=== PATIENT | female | born 1935 | race Caucasian/White ===

== ENCOUNTER 2021-10-24 11:34 | Observation (INO) | payer MEDICARE ==
[2021-10-24 12:01] LABS: #Basophils 0.1 10x3/uL (0.0-0.2); #Eosinphils 0.1 10x3/uL (0.0-0.5); #Monocytes 0.5 10x3/uL (0.0-1.1); #Neutrophils 5.2 10x3/uL (1.5-8.4); %Basophils 0.7 % (0.0-2.0); %Eosinophils 1.2 % (0.0-6.0); %Lymphocytes 22.6 % (18.0-47.0); %Monocytes 6.9 % (0.0-10.0); %Neutrophils 68.3 % (40.0-75.0); Hemoglobin 12.7 g/dL (12.0-15.5); Mean Corpuscular HGB CONC 34.2 g/dL (32.0-36.0); Mean Corpuscular Hemoglobin 30.5 pg (27.0-33.0); Mean Platelet Volume 9.5 fl (7.4-10.4); Platelet Count 171 10x3/uL (150-450); Red Blood Cell (RBC) Count 4.17 10x6/uL (3.90-5.03); White Blood Cell (WBC) Count 7.5 10x3/uL (3.5-10.5)
[2021-10-24] MEDS ORDERED: Aspirin Chewable 81 MG TAB ONE (12:02)
[2021-10-24 12:21] LABS: ALT (SGPT) 16 U/L (8-55); AST (SGOT) 14 U/L (5-34); Albumin 4.1 g/dL (3.4-4.8); Alkaline Phosphatase 76 U/L (40-110); Anion Gap 18 mmol/L (10-20); BUN (Urea Nitrogen) 22 mg/dL (9.8-20.1); Bilirubin, Total 0.5 mg/dL (0.2-1.2); Calc. Creatinine Clearance 0 mL/min (70-130); Calcium 9.2 mg/dL (7.8-10.44); Carbon Dioxide 23 mmol/L (23-31); Chloride 95 mmol/L (98-107); Estimated GFR 35; Globulin 2.7 g/dL (2.4-3.5); Glucose 151 mg/dL (83-110); Potassium 4.2 mmol/L (3.5-5.1); Protein, Total 6.8 g/dL (5.8-8.1); Sodium 132 mmol/L (136-145)
[2021-10-24] MEDS ORDERED: Nitroglycerin 2% Ointment 1 INCH/1 GM Packet ONE (12:54)
[2021-10-24] MEDS ORDERED: Ondansetron PF 4 MG/2 ML Vial IVP PRN (13:16)
[2021-10-24 13:58] LABS: SARS-CoV-2 NAA Rapid Test Not Detected (NotDetected)
[2021-10-24 14:27] VITALS: BMI 29.4
[2021-10-24 15:08] LABS: Troponin I Less than 0.010 ng/mL (< 0.028)
[2021-10-24 18:11] LABS: Troponin I Less than 0.010 ng/mL (< 0.028)
[2021-10-24] MEDS: Sodium Chloride 0.9% 500 ML IV SCH ×2 (20:55→21:15)
[2021-10-24] MEDS ORDERED: Atorvastatin Calcium 20 MG TAB PO SCH (21:00)
[2021-10-24] MEDS ORDERED: Sodium Chloride 0.9% 1,000 ML ONE (21:18)
[2021-10-24] MEDS ORDERED: Acetaminophen 325 MG TAB PO SCH (23:30)
[2021-10-25 04:18] LABS: Cardiac Risk 5.9 (Less than 4.5)
[2021-10-25] MEDS: Sodium Chloride 0.9% 500 ML IV SCH (04:21)
[2021-10-25] MEDS ORDERED: Sodium Chloride 0.9% 1,000 ML ONE (04:23)
[2021-10-25] MEDS ORDERED: Aspirin Chewable 81 MG TAB PO SCH (09:00)
[2021-10-25] MEDS ORDERED: Enoxaparin Sodium 30 MG/0.3 ML SYRINGE SC SCH (09:00)
[2021-10-25] MEDS ORDERED: Acetaminophen 325 MG TAB PO PRN (11:35)
[2021-10-25 12:30] LABS: Hemoglobin A1c 6.3 % (4.0-6.0)
[2021-10-25 12:50] VITALS: BP 155/95; TEMP 98.2
[2021-10-25] MEDS ORDERED: Carvedilol 3.125 MG TAB PO SCH (17:00)
[2021-10-25] MEDS ORDERED: Atorvastatin Calcium 40 MG TAB PO SCH (21:00)
[2021-10-25] MEDS ORDERED: Amitriptyline HCl 25 MG TAB PO SCH (21:00)
[2021-10-26] MEDS ORDERED: Levothyroxine Sodium 75 MCG TAB PO SCH (06:00)
== END 2021-10-25 14:35 | disposition home health service (06) ==
LOC: CSHERS 11:34 → CSHTELE 13:45
PROVIDERS: ADMIT Family Medicine; ATTEND Family Medicine
DX: R07.9 Chest pain, unspecified (principal); I10 Essential (primary) hypertension; E78.5 Hyperlipidemia, unspecified; E03.9 Hypothyroidism, unspecified; F41.8 Other specified anxiety disorders; Z88.8 Allergy status to other drugs, medicaments and biological substances; Z20.822 Contact with and (suspected) exposure to COVID-19
CPT/HCPCS: 71045; 80061; 83036; 83880; 84484 ×2; 93005; 93306; 96372; 99285; G0378 ×3; U0002; 36415; 80053; 84443; 85025; J1650; J7050

== ENCOUNTER 2022-01-01 20:26 | Emergency (ER) | payer MEDICARE, OTHER ==
[2022-01-01 20:57] LABS: #Basophils 0.1 10x3/uL (0.0-0.2); #Eosinphils 0.1 10x3/uL (0.0-0.5); #Monocytes 0.8 10x3/uL (0.0-1.1); #Neutrophils 5.9 10x3/uL (1.5-8.4); %Basophils 0.6 % (0.0-2.0); %Eosinophils 1.3 % (0.0-6.0); %Lymphocytes 26.9 % (18.0-47.0); %Monocytes 8.2 % (0.0-10.0); %Neutrophils 62.8 % (40.0-75.0); Hemoglobin 12.6 g/dL (12.0-15.5); Mean Corpuscular HGB CONC 34.4 g/dL (32.0-36.0); Mean Corpuscular Hemoglobin 30.4 pg (27.0-33.0); Mean Corpuscular Volume 88.4 fl (81.6-98.3); Mean Platelet Volume 9.3 fl (7.4-10.4); Platelet Count 209 10x3/uL (150-450); RBC Distribution Width 12.3 % (11.5-14.5); Red Blood Cell (RBC) Count 4.14 10x6/uL (3.90-5.03); White Blood Cell (WBC) Count 9.3 10x3/uL (3.5-10.5)
[2022-01-01 21:09] LABS: ALT (SGPT) 15 U/L (8-55); AST (SGOT) 13 U/L (5-34); Albumin 4.3 g/dL (3.4-4.8); Alkaline Phosphatase 89 U/L (40-110); Anion Gap 17 mmol/L (10-20); BUN (Urea Nitrogen) 29 mg/dL (9.8-20.1); Bilirubin, Total 0.3 mg/dL (0.2-1.2); Calc. Creatinine Clearance 0 mL/min (70-130); Calcium 9.4 mg/dL (7.8-10.44); Carbon Dioxide 23 mmol/L (23-31); Chloride 98 mmol/L (98-107); Estimated GFR 34; Globulin 3.1 g/dL (2.4-3.5); Glucose 97 mg/dL (83-110); Potassium 4.5 mmol/L (3.5-5.1); Protein, Total 7.4 g/dL (5.8-8.1); Sodium 133 mmol/L (136-145)
== END 2022-01-01 22:30 | disposition home or self-care (01) ==
LOC: CSHERS 20:26
DX: R07.9 Chest pain, unspecified (principal); R06.02 Shortness of breath; E03.9 Hypothyroidism, unspecified; I10 Essential (primary) hypertension
CPT/HCPCS: 36415; 71045; 80053; 83880; 84484; 85025; 93005

== ENCOUNTER 2022-07-26 12:58 | Inpatient (IN) | payer OTHER ==
[2022-07-26 15:06] LABS: #Monocytes 0.3 10x3/uL (0.0-1.1); #Neutrophils 9.4 10x3/uL (1.5-8.4); %Basophils 0.4 % (0.0-2.0); %Eosinophils 0.4 % (0.0-6.0); %Lymphocytes 7.3 % (18.0-47.0); %Monocytes 2.7 % (0.0-10.0); %Neutrophils 88.8 % (40.0-75.0); Hemoglobin 11.2 g/dL (12.0-15.5); Mean Corpuscular HGB CONC 36.1 g/dL (32.0-36.0); Mean Corpuscular Hemoglobin 30.8 pg (27.0-33.0); Mean Corpuscular Volume 85.2 fl (81.6-98.3); Mean Platelet Volume 9.4 fl (7.4-10.4); Platelet Count 231 10x3/uL (150-450); RBC Distribution Width 12.2 % (11.5-14.5); Red Blood Cell (RBC) Count 3.64 10x6/uL (3.90-5.03); White Blood Cell (WBC) Count 10.6 10x3/uL (3.5-10.5)
[2022-07-26 15:10] LABS: PTT 31.9 sec (22.0-33.0); Prothrombin Time 10.8 sec (9.5-12.1)
[2022-07-26 15:15] LABS: ALT (SGPT) 22 U/L (8-55); AST (SGOT) 20 U/L (5-34); Albumin 4.5 g/dL (3.4-4.8); Alkaline Phosphatase 69 U/L (40-110); Anion Gap 16 mmol/L (10-20); BUN (Urea Nitrogen) 35 mg/dL (9.8-20.1); Bilirubin, Total 0.5 mg/dL (0.2-1.2); CK (CPK) 127 U/L (29-168); Calc. Creatinine Clearance 0 mL/min (70-130); Calcium 9.5 mg/dL (7.8-10.44); Carbon Dioxide 22 mmol/L (23-31); Chloride 93 mmol/L (98-107); Estimated GFR 36; Globulin 2.7 g/dL (2.4-3.5); Glucose 113 mg/dL (83-110); Magnesium 2.1 mg/dL (1.6-2.6); Potassium 4.2 mmol/L (3.5-5.1); Protein, Total 7.2 g/dL (5.8-8.1); Sodium 127 mmol/L (136-145)
[2022-07-26] MEDS ORDERED: Ondansetron PF 4 MG/2 ML Vial IVP PRN (16:11)
[2022-07-26] MEDS ORDERED: Acetaminophen 650 MG Suppository PR PRN (16:11)
[2022-07-26] MEDS: Carvedilol 3.125 MG TAB PO SCH (19:00)
[2022-07-26] MEDS: hydrOXYzine 25 MG TAB PO PRN (19:00)
[2022-07-26] MEDS ORDERED: hydrOXYzine 25 MG TAB ONE (19:04)
[2022-07-26] MEDS ORDERED: Carvedilol 3.125 MG TAB ONE (19:17)
[2022-07-26 19:33] LABS: Bilirubin Neg (Negative); Blood, Urine Negative (Negative); Clarity Clear (Clear); Glucose, Urine (Dipstick) Normal (Negative); Ketone, Urine 5 mg/dL (Negative); Leukocyte 25 (Negative); Nitrite Negative (Negative); Protein, Urine (Dipstick) Negative (Neg-Trace); Specific Gravity, Urine 1.015 (1.005-1.030); Urobilinogen Normal mg/dL (Less than 2)
[2022-07-26 19:49] LABS: Bacteria/HPF Rare-Few HPF (None Seen); RBC/HPF 0-3 HPF (0-3)
[2022-07-26 21:35] LABS: Anion Gap 20 mmol/L (10-20); BUN (Urea Nitrogen) 29 mg/dL (9.8-20.1); Calc. Creatinine Clearance 0 mL/min (70-130); Calcium 9.6 mg/dL (7.8-10.44); Carbon Dioxide 18 mmol/L (23-31); Chloride 94 mmol/L (98-107); Estimated GFR 38; Glucose 181 mg/dL (83-110); Sodium 128 mmol/L (136-145)
[2022-07-26] MEDS ORDERED: Heparin 5,000 UNITS/ML VIAL ONE (21:45)
[2022-07-26] MEDS: Heparin 5,000 UNITS/ML VIAL SC SCH (21:52)
[2022-07-26] MEDS ORDERED: HYDROcodone/Acetaminophen 5/325 mg Tablet PO SCH (22:00)
[2022-07-26] MEDS ORDERED: HYDROcodone/Acetaminophen 5/325 mg Tablet ONE (22:21)
[2022-07-26] MEDS ORDERED: ALPRAZolam 0.25 MG TAB PO SCH (23:30)
[2022-07-26] MEDS ORDERED: ALPRAZolam 0.5 MG TAB ONE (23:35)
[2022-07-27 03:04] LABS: #Monocytes 0.2 10x3/uL (0.0-1.1); #Neutrophils 10.8 10x3/uL (1.5-8.4); %Lymphocytes 7.9 % (18.0-47.0); %Monocytes 1.3 % (0.0-10.0); %Neutrophils 90.3 % (40.0-75.0); Hemoglobin 11.3 g/dL (12.0-15.5); Mean Corpuscular HGB CONC 35.9 g/dL (32.0-36.0); Mean Corpuscular Hemoglobin 30.3 pg (27.0-33.0); Mean Corpuscular Volume 84.5 fl (81.6-98.3); Mean Platelet Volume 9.4 fl (7.4-10.4); Platelet Count 246 10x3/uL (150-450); RBC Distribution Width 12.3 % (11.5-14.5); Red Blood Cell (RBC) Count 3.73 10x6/uL (3.90-5.03); White Blood Cell (WBC) Count 11.9 10x3/uL (3.5-10.5)
[2022-07-27 03:45] LABS: Anion Gap 19 mmol/L (10-20); BUN (Urea Nitrogen) 30 mg/dL (9.8-20.1); Calc. Creatinine Clearance 0 mL/min (70-130); Calcium 9.5 mg/dL (7.8-10.44); Carbon Dioxide 17 mmol/L (23-31); Cardiac Risk 4.2 (Less than 4.5); Chloride 97 mmol/L (98-107); Cholesterol 212 mg/dl (< 200 Desired); Estimated GFR 41; Glucose 148 mg/dL (83-110); HDL Cholesterol 51 mg/dL (>60 Neg Risk); LDL Cholesterol, Calculated 139 mg/dL; Potassium 4.3 mmol/L (3.5-5.1); Sodium 129 mmol/L (136-145); Triglycerides 109 mg/dL (Less than 150)
[2022-07-27] MEDS: Levothyroxine Sodium 75 MCG TAB PO SCH (06:54)
[2022-07-27] MEDS ORDERED: Aspirin Chewable 81 MG TAB ONE (08:10)
[2022-07-27] MEDS ORDERED: Heparin 5,000 UNITS/ML VIAL ONE (08:10)
[2022-07-27] MEDS ORDERED: Carvedilol 3.125 MG TAB ONE (08:11)
[2022-07-27] MEDS: Heparin 5,000 UNITS/ML VIAL SC SCH ×3 (08:20→21:30)
[2022-07-27] MEDS: Carvedilol 3.125 MG TAB PO SCH ×2 (08:25→16:58)
[2022-07-27] MEDS: Aspirin 81 mg Enteric Coated Tablet PO SCH (08:25)
[2022-07-27] MEDS ORDERED: Sodium Chloride 0.9% 1,000 ML IV SCH (09:15)
[2022-07-27] MEDS: Bupropion 150 MG XL TAB PO SCH (09:57)
[2022-07-27 12:15] VITALS: BMI 35.4
[2022-07-27 13:11] LABS: Hemoglobin A1c 5.8 % (4.0-6.0)
[2022-07-27 18:50] LABS: Anion Gap 17 mmol/L (10-20); BUN (Urea Nitrogen) 27 mg/dL (9.8-20.1); Calc. Creatinine Clearance 50 mL/min (70-130); Calcium 9.2 mg/dL (7.8-10.44); Carbon Dioxide 21 mmol/L (23-31); Chloride 98 mmol/L (98-107); Estimated GFR 44; Glucose 143 mg/dL (83-110); Potassium 3.8 mmol/L (3.5-5.1); Sodium 132 mmol/L (136-145)
[2022-07-27] MEDS: Atorvastatin Calcium 40 MG TAB PO SCH (21:17)
[2022-07-28 04:53] LABS: #Eosinphils 0.2 10x3/uL (0.0-0.5); #Monocytes 0.7 10x3/uL (0.0-1.1); #Neutrophils 7.4 10x3/uL (1.5-8.4); %Basophils 0.4 % (0.0-2.0); %Eosinophils 1.6 % (0.0-6.0); %Lymphocytes 25.8 % (18.0-47.0); %Monocytes 6.1 % (0.0-10.0); %Neutrophils 65.8 % (40.0-75.0); Hemoglobin 10.8 g/dL (12.0-15.5); Mean Corpuscular HGB CONC 34.2 g/dL (32.0-36.0); Mean Corpuscular Volume 87.8 fl (81.6-98.3); Mean Platelet Volume 9.6 fl (7.4-10.4); Platelet Count 231 10x3/uL (150-450); RBC Distribution Width 12.8 % (11.5-14.5); White Blood Cell (WBC) Count 11.2 10x3/uL (3.5-10.5)
[2022-07-28 05:03] LABS: ALT (SGPT) 18 U/L (8-55); AST (SGOT) 15 U/L (5-34); Albumin 3.9 g/dL (3.4-4.8); Alkaline Phosphatase 53 U/L (40-110); Anion Gap 15 mmol/L (10-20); BUN (Urea Nitrogen) 25 mg/dL (9.8-20.1); Bilirubin, Total 0.2 mg/dL (0.2-1.2); Calc. Creatinine Clearance 58 mL/min (70-130); Calcium 9.1 mg/dL (7.8-10.44); Carbon Dioxide 20 mmol/L (23-31); Chloride 102 mmol/L (98-107); Estimated GFR 53; Globulin 2.4 g/dL (2.4-3.5); Glucose 97 mg/dL (83-110); Potassium 4.1 mmol/L (3.5-5.1); Protein, Total 6.3 g/dL (5.8-8.1); Sodium 133 mmol/L (136-145)
[2022-07-28] MEDS: Levothyroxine Sodium 75 MCG TAB PO SCH (07:00)
[2022-07-28] MEDS: Bupropion 150 MG XL TAB PO SCH (08:53)
[2022-07-28] MEDS: Heparin 5,000 UNITS/ML VIAL SC SCH ×3 (08:53→22:00)
[2022-07-28] MEDS: Carvedilol 3.125 MG TAB PO SCH ×2 (08:53→15:44)
[2022-07-28] MEDS: Aspirin 81 mg Enteric Coated Tablet PO SCH (08:53)
[2022-07-28] MEDS: Atorvastatin Calcium 40 MG TAB PO SCH (20:09)
[2022-07-28] MEDS: Acetaminophen 325 MG TAB PO PRN (20:09)
[2022-07-29 06:01] LABS: ALT (SGPT) 17 U/L (8-55); AST (SGOT) 14 U/L (5-34); Albumin 3.7 g/dL (3.4-4.8); Alkaline Phosphatase 58 U/L (40-110); Anion Gap 17 mmol/L (10-20); BUN (Urea Nitrogen) 25 mg/dL (9.8-20.1); Bilirubin, Total 0.3 mg/dL (0.2-1.2); Calc. Creatinine Clearance 54 mL/min (70-130); Carbon Dioxide 21 mmol/L (23-31); Chloride 99 mmol/L (98-107); Estimated GFR 49; Globulin 2.3 g/dL (2.4-3.5); Glucose 93 mg/dL (83-110); Potassium 4.4 mmol/L (3.5-5.1); Sodium 133 mmol/L (136-145)
[2022-07-29] MEDS: Levothyroxine Sodium 75 MCG TAB PO SCH (06:06)
[2022-07-29 06:09] LABS: #Basophils 0.1 10x3/uL (0.0-0.2); #Eosinphils 0.3 10x3/uL (0.0-0.5); #Monocytes 0.8 10x3/uL (0.0-1.1); #Neutrophils 5.1 10x3/uL (1.5-8.4); %Basophils 0.5 % (0.0-2.0); %Lymphocytes 33.8 % (18.0-47.0); %Monocytes 8.2 % (0.0-10.0); %Neutrophils 54.2 % (40.0-75.0); Hemoglobin 10.6 g/dL (12.0-15.5); Mean Corpuscular HGB CONC 34.4 g/dL (32.0-36.0); Mean Corpuscular Hemoglobin 30.1 pg (27.0-33.0); Mean Corpuscular Volume 87.5 fl (81.6-98.3); Mean Platelet Volume 9.4 fl (7.4-10.4); Platelet Count 227 10x3/uL (150-450); RBC Distribution Width 12.8 % (11.5-14.5); Red Blood Cell (RBC) Count 3.52 10x6/uL (3.90-5.03); White Blood Cell (WBC) Count 9.4 10x3/uL (3.5-10.5)
[2022-07-29] MEDS: Bupropion 150 MG XL TAB PO SCH (10:07)
[2022-07-29] MEDS: Aspirin 81 mg Enteric Coated Tablet PO SCH (10:07)
[2022-07-29] MEDS: Losartan Potassium 50 MG TAB PO SCH (10:07)
[2022-07-29] MEDS: Carvedilol 3.125 MG TAB PO SCH ×2 (10:07→16:58)
[2022-07-29] MEDS: Heparin 5,000 UNITS/ML VIAL SC SCH ×3 (10:08→21:43)
[2022-07-29] MEDS ORDERED: Polyethylene Glycol 3350 17 GM Packet PO PRN (12:28)
[2022-07-29] MEDS ORDERED: Docusate 100 MG CAP PO PRN (12:28)
[2022-07-29] MEDS ORDERED: Polyethylene Glycol 3350 17 GM Packet PO SCH (13:00)
[2022-07-29] MEDS ORDERED: Docusate 100 MG CAP PO SCH (13:00)
[2022-07-29] MEDS ORDERED: Bisacodyl 10 MG SUPP PR SCH (15:45)
[2022-07-29] MEDS: Atorvastatin Calcium 40 MG TAB PO SCH (21:43)
[2022-07-29] MEDS: Acetaminophen 325 MG TAB PO PRN (21:43)
[2022-07-29] MEDS ORDERED: QUEtiapine 25 MG TAB PO SCH (23:45)
[2022-07-30] MEDS: Levothyroxine Sodium 75 MCG TAB PO SCH (05:54)
[2022-07-30] MEDS: Carvedilol 3.125 MG TAB PO SCH ×2 (10:12→16:19)
[2022-07-30] MEDS: Losartan Potassium 50 MG TAB PO SCH (10:12)
[2022-07-30] MEDS: Bupropion 150 MG XL TAB PO SCH (10:12)
[2022-07-30] MEDS: Heparin 5,000 UNITS/ML VIAL SC SCH (10:12)
[2022-07-30] MEDS: Aspirin 81 mg Enteric Coated Tablet PO SCH (10:12)
[2022-07-30] MEDS ORDERED: Haloperidol Lactate 5 MG/ML VIAL SLOW IVP SCH (20:00)
[2022-07-30] MEDS: Atorvastatin Calcium 40 MG TAB PO SCH (20:46)
[2022-07-30] MEDS: Acetaminophen 325 MG TAB PO PRN (21:14)
[2022-07-31] MEDS ORDERED: QUEtiapine 25 MG TAB PO SCH (00:15)
[2022-07-31] MEDS: Levothyroxine Sodium 75 MCG TAB PO SCH (06:06)
[2022-07-31] MEDS: Carvedilol 3.125 MG TAB PO SCH ×2 (08:04→18:25)
[2022-07-31] MEDS: Bupropion 150 MG XL TAB PO SCH (08:05)
[2022-07-31] MEDS: Aspirin 81 mg Enteric Coated Tablet PO SCH (08:05)
[2022-07-31] MEDS: Losartan Potassium 50 MG TAB PO SCH (08:05)
[2022-07-31] MEDS: Atorvastatin Calcium 40 MG TAB PO SCH (21:13)
[2022-07-31] MEDS: Acetaminophen 325 MG TAB PO PRN (22:46)
[2022-08-01] MEDS: hydrOXYzine 25 MG TAB PO PRN ×2 (00:41→20:09)
[2022-08-01] MEDS: Levothyroxine Sodium 75 MCG TAB PO SCH (05:06)
[2022-08-01] MEDS: Polyethylene Glycol 3350 17 GM Packet PO SCH (08:25)
[2022-08-01] MEDS: Docusate 100 MG CAP PO SCH (08:26)
[2022-08-01] MEDS: Losartan Potassium 50 MG TAB PO SCH (08:26)
[2022-08-01] MEDS: Aspirin 81 mg Enteric Coated Tablet PO SCH (08:26)
[2022-08-01] MEDS: Carvedilol 3.125 MG TAB PO SCH ×2 (08:26→16:13)
[2022-08-01] MEDS: Bupropion 150 MG XL TAB PO SCH (08:26)
[2022-08-01] MEDS ORDERED: Bisacodyl 10 MG SUPP PR SCH (10:45)
[2022-08-01] MEDS ORDERED: QUEtiapine 25 MG TAB PO SCH (20:00)
[2022-08-01] MEDS: Atorvastatin Calcium 40 MG TAB PO SCH (20:06)
[2022-08-01] MEDS: Acetaminophen 325 MG TAB PO PRN (20:09)
[2022-08-01] MEDS ORDERED: Ziprasidone 20 MG VIAL IM SCH (23:59)
[2022-08-01] MEDS ORDERED: Sterile Water 10 ML ONE (23:59)
[2022-08-02 05:21] LABS: Anion Gap 15 mmol/L (10-20); BUN (Urea Nitrogen) 21 mg/dL (9.8-20.1); Calc. Creatinine Clearance 56 mL/min (70-130); Carbon Dioxide 20 mmol/L (23-31); Chloride 98 mmol/L (98-107); Estimated GFR 51; Glucose 100 mg/dL (83-110); Potassium 4.1 mmol/L (3.5-5.1); Sodium 129 mmol/L (136-145)
[2022-08-02] MEDS: Levothyroxine Sodium 75 MCG TAB PO SCH (07:55)
[2022-08-02] MEDS: Losartan Potassium 50 MG TAB PO SCH (08:54)
[2022-08-02] MEDS: Bupropion 150 MG XL TAB PO SCH (08:54)
[2022-08-02] MEDS: Acetaminophen 325 MG TAB PO PRN (08:54)
[2022-08-02] MEDS: Polyethylene Glycol 3350 17 GM Packet PO SCH (08:55)
[2022-08-02] MEDS: Carvedilol 3.125 MG TAB PO SCH ×2 (08:55→15:31)
[2022-08-02] MEDS: Docusate 100 MG CAP PO SCH (08:55)
[2022-08-02] MEDS: Aspirin 81 mg Enteric Coated Tablet PO SCH (08:55)
[2022-08-02] MEDS: Atorvastatin Calcium 40 MG TAB PO SCH (20:00)
[2022-08-02] MEDS: hydrOXYzine 25 MG TAB PO PRN (23:16)
[2022-08-03] MEDS: Levothyroxine Sodium 75 MCG TAB PO SCH (06:35)
[2022-08-03] MEDS: Polyethylene Glycol 3350 17 GM Packet PO SCH (07:57)
[2022-08-03] MEDS: Carvedilol 3.125 MG TAB PO SCH ×2 (07:57→15:58)
[2022-08-03] MEDS: Losartan Potassium 50 MG TAB PO SCH (07:57)
[2022-08-03] MEDS: Aspirin 81 mg Enteric Coated Tablet PO SCH (07:57)
[2022-08-03] MEDS: Bupropion 150 MG XL TAB PO SCH (07:57)
[2022-08-03] MEDS: Acetaminophen 325 MG TAB PO PRN (07:57)
[2022-08-03] MEDS: Docusate 100 MG CAP PO SCH (07:57)
[2022-08-03] MEDS ORDERED: Haloperidol Lactate 5 MG/ML VIAL IM SCH (17:30)
[2022-08-03] MEDS ORDERED: Haloperidol Lactate 5 MG/ML VIAL ONE (17:33)
[2022-08-03] MEDS ORDERED: Amitriptyline HCl 25 MG TAB PO SCH (21:00)
[2022-08-03] MEDS ORDERED: QUEtiapine 25 MG TAB PO SCH (22:00)
[2022-08-03] MEDS: Atorvastatin Calcium 40 MG TAB PO SCH (22:15)
[2022-08-04] MEDS: Levothyroxine Sodium 75 MCG TAB PO SCH (06:22)
[2022-08-04] MEDS: hydrOXYzine 25 MG TAB PO PRN (08:01)
[2022-08-04] MEDS: Losartan Potassium 50 MG TAB PO SCH (08:01)
[2022-08-04] MEDS: Aspirin 81 mg Enteric Coated Tablet PO SCH (08:01)
[2022-08-04] MEDS: Carvedilol 3.125 MG TAB PO SCH ×2 (08:01→16:26)
[2022-08-04] MEDS: Polyethylene Glycol 3350 17 GM Packet PO SCH (08:01)
[2022-08-04] MEDS: Docusate 100 MG CAP PO SCH (08:01)
[2022-08-04] MEDS: Bupropion 150 MG XL TAB PO SCH (08:01)
[2022-08-04 12:23] VITALS: TEMP 98.1
[2022-08-04 15:50] VITALS: BP 160/77
== END 2022-08-04 17:00 | disposition home health service (06) | DRG 641 ==
LOC: SUATTDRO 12:58 → CSHERS 12:58 → CSHERHOLD 20:57 → CSHTELE 07-27 09:30
PROVIDERS: ADMIT Internal Medicine; ATTEND Internal Medicine
PROC: 4A10X4Z Monitoring of Central Nervous Electrical Activity, External Approach (ICD-10-PCS; principal; 2022-07-27)
DX: E87.1 Hypo-osmolality and hyponatremia (principal); N17.9 Acute kidney failure, unspecified; E86.0 Dehydration; E03.9 Hypothyroidism, unspecified; I10 Essential (primary) hypertension; F32.A Depression, unspecified; S00.03XA Contusion of scalp, initial encounter; W19.XXXA Unspecified fall, initial encounter; E87.8 Other disorders of electrolyte and fluid balance, not elsewhere classified; F03.90 Unspecified dementia, unspecified severity, without behavioral disturbance, psychotic disturbance, mood disturbance, and anxiety; E78.00 Pure hypercholesterolemia, unspecified; Z88.8 Allergy status to other drugs, medicaments and biological substances; Z79.82 Long term (current) use of aspirin; Z90.49 Acquired absence of other specified parts of digestive tract; Z90.710 Acquired absence of both cervix and uterus; Z98.890 Other specified postprocedural states; Y92.009 Unspecified place in unspecified non-institutional (private) residence as the place of occurrence of the external cause; Z86.73 Personal history of transient ischemic attack (TIA), and cerebral infarction without residual deficits; Z79.899 Other long term (current) drug therapy; K59.00 Constipation, unspecified
CPT/HCPCS: 36415; 70450; 70551; 71045; 72125; 80048; 80053; 80061; 81003; 81015; 82550; 83036; 83605; 83735; 83880; 83930; 83935; 84300; 84443; 84484; 85025; 85610; 85730; 93005; 93306; 93880; 94640; 94760; 95816; 95819; 95957; J1630; J1644; J1650; J3486; J7050; J7611

== ENCOUNTER 2022-08-30 18:05 | Emergency (ER) | payer MEDICARE, OTHER ==
[2022-08-30 18:38] LABS: Base Excess 1.8 mEq/L (-2 - +2); Calcium, Ionized (venous) 1.08 mmol/L (1.16-1.32); Chloride (VBG) 94 mmol/L (98-106); Hematocrit-VBG 36 % (36.0-47.0); Hemoglobin (Hb) 12.2 g/dL (11.7-16.1); Potassium (VBG) 4.32 mmol/L (3.70-5.30); Puncture Site Other Site; RapidComm Collect By CBN; Sodium 130.2 mmol/L (133-146); pH (venous) 7.516 (7.32-7.43)
[2022-08-30 18:41] LABS: #Basophils 0.1 10x3/uL (0.0-0.2); #Eosinphils 0.1 10x3/uL (0.0-0.5); #Monocytes 0.8 10x3/uL (0.0-1.1); #Neutrophils 5.7 10x3/uL (1.5-8.4); %Basophils 0.5 % (0.0-2.0); %Eosinophils 1.1 % (0.0-6.0); %Lymphocytes 31.7 % (18.0-47.0); %Monocytes 7.7 % (0.0-10.0); %Neutrophils 58.8 % (40.0-75.0); Hemoglobin 11.1 g/dL (12.0-15.5); Mean Corpuscular HGB CONC 35.4 g/dL (32.0-36.0); Mean Corpuscular Volume 87.7 fl (81.6-98.3); Mean Platelet Volume 9.3 fl (7.4-10.4); Platelet Count 272 10x3/uL (150-450); RBC Distribution Width 12.3 % (11.5-14.5); Red Blood Cell (RBC) Count 3.58 10x6/uL (3.90-5.03); White Blood Cell (WBC) Count 9.7 10x3/uL (3.5-10.5)
[2022-08-30] MEDS ORDERED: Aspirin Chewable 81 MG TAB ONE (18:49)
[2022-08-30 18:54] LABS: ALT (SGPT) 14 U/L (8-55); AST (SGOT) 14 U/L (5-34); Albumin 4.5 g/dL (3.4-4.8); Alkaline Phosphatase 97 U/L (40-110); Anion Gap 20 mmol/L (10-20); BUN (Urea Nitrogen) 25 mg/dL (9.8-20.1); Bilirubin, Total 0.3 mg/dL (0.2-1.2); CK (CPK) 50 U/L (29-168); Calc. Creatinine Clearance 0 mL/min (70-130); Calcium 9.3 mg/dL (7.8-10.44); Carbon Dioxide 21 mmol/L (23-31); Chloride 95 mmol/L (98-107); Estimated GFR 33; Globulin 2.4 g/dL (2.4-3.5); Glucose 83 mg/dL (83-110); Lipase 31 U/L (8-78); Potassium 4.5 mmol/L (3.5-5.1); Protein, Total 6.9 g/dL (5.8-8.1); Sodium 131 mmol/L (136-145)
[2022-08-30 19:26] LABS: SARS-CoV-2 NAA Rapid Test Not Detected (NotDetected)
== END 2022-08-30 20:40 | disposition home or self-care (01) ==
LOC: CSHERS 18:05
DX: F41.9 Anxiety disorder, unspecified (principal); I10 Essential (primary) hypertension; E03.9 Hypothyroidism, unspecified; Z86.73 Personal history of transient ischemic attack (TIA), and cerebral infarction without residual deficits; Z20.822 Contact with and (suspected) exposure to COVID-19
CPT/HCPCS: 0240U; 71045; 80053; 82550; 82805; 83690; 83735; 83880; 84484; 85025; 85379; 99285; 93005

== ENCOUNTER 2022-11-06 14:30 | Emergency (ER) | payer OTHER | END 2022-11-06 15:48 | disposition home or self-care (01) | LOC: CSHERS 14:30 | DX: R07.9 Chest pain, unspecified (principal); I10 Essential (primary) hypertension; E03.9 Hypothyroidism, unspecified; G45.9 Transient cerebral ischemic attack, unspecified | CPT/HCPCS: 93005 ==

== ENCOUNTER 2022-12-25 17:31 | Observation (INO) | payer OTHER ==
[2022-12-25] MEDS ORDERED: Ondansetron PF 4 MG/2 ML Vial IVP PRN (17:54)
[2022-12-25] MEDS ORDERED: Acetaminophen 325 MG TAB PO PRN (17:54)
[2022-12-25] MEDS ORDERED: Labetalol HCl 100 MG/20 ML VIAL SLOW IVP PRN (18:06)
[2022-12-25 18:45] VITALS: BMI 31.6
[2022-12-25 19:07] LABS: Free T4 (Free Thyroxine) 1.13 ng/dL (0.70-1.48)
[2022-12-25] MEDS ORDERED: Carvedilol 3.125 MG TAB PO SCH (20:00)
[2022-12-25] MEDS ORDERED: Losartan Potassium 50 MG TAB PO SCH (20:00)
[2022-12-25] MEDS ORDERED: Amitriptyline HCl 25 MG TAB PO SCH (21:00)
[2022-12-26 04:56] LABS: #Basophils 0.1 10x3/uL (0.0-0.2); #Eosinphils 0.1 10x3/uL (0.0-0.5); #Monocytes 0.8 10x3/uL (0.0-1.1); #Neutrophils 3.9 10x3/uL (1.5-8.4); %Basophils 0.8 % (0.0-2.0); %Eosinophils 1.7 % (0.0-6.0); %Lymphocytes 34.9 % (18.0-47.0); %Neutrophils 52.3 % (40.0-75.0); Hematocrit 29.9 % (34.9-44.5); Hemoglobin 10.2 g/dL (12.0-15.5); Mean Corpuscular HGB CONC 34.1 g/dL (32.0-36.0); Mean Corpuscular Volume 87.9 fl (81.6-98.3); Mean Platelet Volume 9.2 fl (7.4-10.4); Platelet Count 211 10x3/uL (150-450); RBC Distribution Width 12.5 % (11.5-14.5); White Blood Cell (WBC) Count 7.5 10x3/uL (3.5-10.5)
[2022-12-26 05:00] LABS: Anion Gap 14 mmol/L (10-20); BUN (Urea Nitrogen) 15 mg/dL (9.8-20.1); Calc. Creatinine Clearance 44 mL/min (70-130); Calcium 8.8 mg/dL (7.8-10.44); Carbon Dioxide 22 mmol/L (23-31); Chloride 100 mmol/L (98-107); Estimated GFR 45; Glucose 101 mg/dL (83-110); Potassium 4.1 mmol/L (3.5-5.1); Sodium 132 mmol/L (136-145)
[2022-12-26] MEDS ORDERED: Levothyroxine Sodium 75 MCG TAB PO SCH (06:00)
[2022-12-26] MEDS ORDERED: Carvedilol 3.125 MG TAB PO SCH (08:00)
[2022-12-26] MEDS ORDERED: Losartan Potassium 50 MG TAB PO SCH (09:00)
[2022-12-26] MEDS ORDERED: QUEtiapine 25 MG TAB PO SCH (09:00)
[2022-12-26] MEDS ORDERED: Furosemide 40 MG TAB PO SCH (09:00)
[2022-12-26] MEDS ORDERED: Bupropion 150 MG XL TAB PO SCH (09:00)
[2022-12-26] MEDS ORDERED: Aspirin 81 mg Enteric Coated Tablet PO SCH (09:00)
[2022-12-26 12:27] VITALS: TEMP 97.4
[2022-12-26 16:20] VITALS: BP 144/61
== END 2022-12-26 16:15 | disposition home or self-care (01) ==
LOC: CSHTELE 17:31 → INTOOBSV 17:31
PROVIDERS: ADMIT Internal Medicine; ATTEND Family Medicine
DX: I16.0 Hypertensive urgency (principal); I10 Essential (primary) hypertension; R07.9 Chest pain, unspecified; E87.1 Hypo-osmolality and hyponatremia; E03.9 Hypothyroidism, unspecified; E78.5 Hyperlipidemia, unspecified; F41.8 Other specified anxiety disorders; N28.9 Disorder of kidney and ureter, unspecified; Z79.82 Long term (current) use of aspirin; Z79.899 Other long term (current) drug therapy; Z79.890 Hormone replacement therapy; Z88.8 Allergy status to other drugs, medicaments and biological substances; Z88.6 Allergy status to analgesic agent; Z90.49 Acquired absence of other specified parts of digestive tract; Z90.710 Acquired absence of both cervix and uterus
CPT/HCPCS: 80048; 84439; 84443; 84481; 85025; 96372 ×2; 96374; 97116; G0378 ×2; G0379; 36415; J1650

== ENCOUNTER 2023-02-25 14:36 | Emergency (ER) | payer MEDICARE, OTHER ==
[2023-02-25 15:22] LABS: #Basophils 0.1 10x3/uL (0.0-0.2); #Eosinphils 0.2 10x3/uL (0.0-0.5); #Monocytes 0.6 10x3/uL (0.0-1.1); #Neutrophils 6.2 10x3/uL (1.5-8.4); %Basophils 0.6 % (0.0-2.0); %Eosinophils 1.5 % (0.0-6.0); %Lymphocytes 28.5 % (18.0-47.0); %Monocytes 6.1 % (0.0-10.0); Hematocrit 32.4 % (34.9-44.5); Hemoglobin 11.1 g/dL (12.0-15.5); Mean Corpuscular HGB CONC 34.3 g/dL (32.0-36.0); Mean Corpuscular Hemoglobin 30.2 pg (27.0-33.0); Mean Corpuscular Volume 88.3 fl (81.6-98.3); Mean Platelet Volume 9.2 fl (7.4-10.4); Platelet Count 274 10x3/uL (150-450); RBC Distribution Width 12.5 % (11.5-14.5); Red Blood Cell (RBC) Count 3.67 10x6/uL (3.90-5.03); White Blood Cell (WBC) Count 9.8 10x3/uL (3.5-10.5)
[2023-02-25 15:38] LABS: Acetaminophen Less than 10 mcg/mL (10.0-30.0); Alcohol Less than 10.0 mg/dL (Less than 10); Lipase 29 U/L (8-78); Salicylate Less than 8.0 mg/dL (15.0-30.0)
[2023-02-25 15:39] LABS: ALT (SGPT) 13 U/L (8-55); AST (SGOT) 15 U/L (5-34); Albumin 4.4 g/dL (3.4-4.8); Alkaline Phosphatase 94 U/L (40-110); Anion Gap 20 mmol/L (10-20); BUN (Urea Nitrogen) 15 mg/dL (9.8-20.1); Bilirubin, Total 0.3 mg/dL (0.2-1.2); Calc. Creatinine Clearance 0 mL/min (70-130); Calcium 9.3 mg/dL (7.8-10.44); Carbon Dioxide 19 mmol/L (23-31); Chloride 99 mmol/L (98-107); Estimated GFR 40; Globulin 2.7 g/dL (2.4-3.5); Glucose 114 mg/dL (83-110); Potassium 4.9 mmol/L (3.5-5.1); Protein, Total 7.1 g/dL (5.8-8.1); Sodium 133 mmol/L (136-145)
[2023-02-25 15:40] LABS: Bilirubin Neg (Negative); Blood, Urine Negative (Negative); Clarity Clear (Clear); Glucose, Urine (Dipstick) Normal (Negative); Ketone, Urine Negative (Negative); Leukocyte Negative (Negative); Nitrite Negative (Negative); Protein, Urine (Dipstick) Negative (Neg-Trace); Urobilinogen Normal mg/dL (Less than 2)
[2023-02-25 15:43] LABS: Troponin I Less than 0.010 ng/mL (< 0.028)
[2023-02-25 15:47] LABS: Amphetamine Not Detected (NotDetected); Barbiturates Screen Not Detected (NotDetected); Benzodiazepine Screen Not Detected (NotDetected); Cocaine Metabolite Screen Not Detected (NotDetected); Methadone Not Detected (NotDetected); Methamphetamine Not Detected (NotDetected); Opiate Screen Not Detected (NotDetected); Oxycodone Screen Not Detected (NotDetected); Phencyclidine (PCP) Not Detected (NotDetected); THC/Cannabinoid Screen Not Detected (NotDetected); Tricyclic Screen Detected (NotDetected)
[2023-02-25 15:56] LABS: Bacteria/HPF 1+ HPF (None Seen); CAUTI Indications for Culture Alt mental st,lethar; RBC/HPF 0-3 HPF (0-3); WBC/HPF 0-3 HPF (0-3)
[2023-02-25 15:58] LABS: Urine Culture Reflex No No
== END 2023-02-25 17:21 | disposition home or self-care (01) ==
LOC: CSHERS 14:36
DX: R41.0 Disorientation, unspecified (principal); E03.9 Hypothyroidism, unspecified; I10 Essential (primary) hypertension; Z86.73 Personal history of transient ischemic attack (TIA), and cerebral infarction without residual deficits
CPT/HCPCS: 51701; 70450; 71045; 80053; 80306; 80307; 81001; 83690; 84443; 84484; 85025; 93005; 94760; 96360

== ENCOUNTER 2023-03-24 21:16 | Emergency (ER) | payer OTHER ==
[2023-03-24] MEDS ORDERED: Ipratropium/Albuterol 3 ML NEB ONE (22:20)
[2023-03-24] MEDS ORDERED: Haloperidol Lactate 5 MG/ML VIAL ONE (22:57)
[2023-03-24 23:16] LABS: #Basophils 0.1 10x3/uL (0.0-0.2); #Eosinphils 0.2 10x3/uL (0.0-0.5); #Monocytes 0.7 10x3/uL (0.0-1.1); #Neutrophils 4.4 10x3/uL (1.5-8.4); %Basophils 0.7 % (0.0-2.0); %Lymphocytes 38.2 % (18.0-47.0); %Monocytes 7.9 % (0.0-10.0); %Neutrophils 50.9 % (40.0-75.0); Hematocrit 31.1 % (34.9-44.5); Hemoglobin 10.9 g/dL (12.0-15.5); Mean Corpuscular Hemoglobin 31.2 pg (27.0-33.0); Mean Corpuscular Volume 89.1 fl (81.6-98.3); Mean Platelet Volume 9.7 fl (7.4-10.4); Platelet Count 249 10x3/uL (150-450); RBC Distribution Width 12.8 % (11.5-14.5); Red Blood Cell (RBC) Count 3.49 10x6/uL (3.90-5.03); White Blood Cell (WBC) Count 8.7 10x3/uL (3.5-10.5)
[2023-03-24 23:21] LABS: ALT (SGPT) 12 U/L (8-55); AST (SGOT) 13 U/L (5-34); Albumin 4.2 g/dL (3.4-4.8); Alkaline Phosphatase 81 U/L (40-110); Anion Gap 18 mmol/L (10-20); BUN (Urea Nitrogen) 22 mg/dL (9.8-20.1); Bilirubin, Total 0.3 mg/dL (0.2-1.2); Calc. Creatinine Clearance 0 mL/min (70-130); Calcium 9.4 mg/dL (7.8-10.44); Carbon Dioxide 19 mmol/L (23-31); Chloride 99 mmol/L (98-107); Estimated GFR 36; Globulin 2.8 g/dL (2.4-3.5); Glucose 93 mg/dL (83-110); Potassium 4.5 mmol/L (3.5-5.1); Sodium 131 mmol/L (136-145)
[2023-03-24 23:24] LABS: Troponin I Less than 0.010 ng/mL (< 0.028)
[2023-03-25 04:29] LABS: Actual Bicarbonate (HCO3v) 20.7 mEq/L (22-28); Analyzer IN Cardio CS ER; Base Excess -4.4 mEq/L (-2 - +2); Calcium, Ionized (venous) 1.13 mmol/L (1.16-1.32); Chloride (VBG) 99 mmol/L (98-106); Critical Notified By: CP.PH; Hematocrit-VBG 36 % (36.0-47.0); Hemoglobin (Hb) 12.3 g/dL (11.7-16.1); Potassium (VBG) 3.86 mmol/L (3.70-5.30); Puncture Site Other Site; RapidComm Collect By LAB.YY; Sodium 133 mmol/L (133-146); pH (venous) 7.352 (7.32-7.43)
== END 2023-03-25 02:11 | disposition home or self-care (01) ==
LOC: CSHERS 21:16
DX: R06.02 Shortness of breath (principal); I10 Essential (primary) hypertension; E03.9 Hypothyroidism, unspecified
CPT/HCPCS: 71045; 80053; 82805; 84484; 85025; 93005; 94640; 94760; 96372; J1630; J7620

== ENCOUNTER 2023-06-20 15:53 | Emergency (ER) | payer OTHER ==
[2023-06-20 16:38] LABS: #Basophils 0.1 10x3/uL (0.0-0.2); #Eosinphils 0.2 10x3/uL (0.0-0.5); #Monocytes 1.1 10x3/uL (0.0-1.1); #Neutrophils 7.1 10x3/uL (1.5-8.4); %Basophils 0.7 % (0.0-2.0); %Monocytes 10.2 % (0.0-10.0); %Neutrophils 67.8 % (40.0-75.0); Hematocrit 33.5 % (34.9-44.5); Hemoglobin 11.9 g/dL (12.0-15.5); Mean Corpuscular HGB CONC 35.5 g/dL (32.0-36.0); Mean Corpuscular Hemoglobin 31.1 pg (27.0-33.0); Mean Corpuscular Volume 87.5 fl (81.6-98.3); Mean Platelet Volume 9.7 fl (7.4-10.4); Platelet Count 249 10x3/uL (150-450); RBC Distribution Width 11.7 % (11.5-14.5); Red Blood Cell (RBC) Count 3.83 10x6/uL (3.90-5.03); White Blood Cell (WBC) Count 10.4 10x3/uL (3.5-10.5)
[2023-06-20 16:52] LABS: Acetaminophen Less than 10 mcg/mL (10.0-30.0); Alcohol Less than 10.0 mg/dL (Less than 10); Salicylate Less than 8.0 mg/dL (15.0-30.0)
[2023-06-20 16:53] LABS: ALT (SGPT) 10 U/L (8-55); AST (SGOT) 12 U/L (5-34); Albumin 4.3 g/dL (3.4-4.8); Alkaline Phosphatase 92 U/L (40-110); Anion Gap 15 mmol/L (10-20); BUN (Urea Nitrogen) 29 mg/dL (9.8-20.1); Bilirubin, Total 0.4 mg/dL (0.2-1.2); Calc. Creatinine Clearance 0 mL/min (70-130); Calcium 8.8 mg/dL (7.8-10.44); Carbon Dioxide 23 mmol/L (23-31); Chloride 101 mmol/L (98-107); Estimated GFR 38; Globulin 2.4 g/dL (2.4-3.5); Glucose 92 mg/dL (83-110); Potassium 4.8 mmol/L (3.5-5.1); Protein, Total 6.7 g/dL (5.8-8.1); Sodium 134 mmol/L (136-145)
[2023-06-20 17:15] LABS: Bilirubin Neg (Negative); Blood, Urine 10 (Negative); Clarity Cloudy (Clear); Glucose, Urine (Dipstick) Normal (Negative); Ketone, Urine Negative (Negative); Leukocyte 500 (Negative); Nitrite Negative (Negative); Protein, Urine (Dipstick) 30 mg/dl (Neg-Trace); Urobilinogen Normal mg/dL (Less than 2)
[2023-06-20 17:24] LABS: Amphetamine Not Detected (NotDetected); Barbiturates Screen Not Detected (NotDetected); Benzodiazepine Screen Not Detected (NotDetected); Cocaine Metabolite Screen Not Detected (NotDetected); Methadone Not Detected (NotDetected); Methamphetamine Not Detected (NotDetected); Opiate Screen Not Detected (NotDetected); Oxycodone Screen Not Detected (NotDetected); Phencyclidine (PCP) Not Detected (NotDetected); THC/Cannabinoid Screen Not Detected (NotDetected); Tricyclic Screen Detected (NotDetected)
[2023-06-20 17:27] LABS: Bacteria/HPF Rare-Few HPF (None Seen); CAUTI Indications for Culture Alt mental st,lethar; RBC/HPF 0-3 HPF (0-3); Squamous Epithelial Greater than 50 HPF (0-3); WBC/HPF Greater than 50 HPF (0-3)
[2023-06-20 17:30] LABS: Urine Culture Reflex Yes Yes
[2023-06-20] MEDS ORDERED: cefTRIAXone (ROCEPHIN) 1 GM VIAL ONE (18:00)
== END 2023-06-21 13:03 | disposition home or self-care (01) ==
LOC: CSHERS 15:53
DX: N39.0 Urinary tract infection, site not specified (principal); R41.82 Altered mental status, unspecified; I10 Essential (primary) hypertension; G45.9 Transient cerebral ischemic attack, unspecified; E03.9 Hypothyroidism, unspecified; F41.9 Anxiety disorder, unspecified; F03.90 Unspecified dementia, unspecified severity, without behavioral disturbance, psychotic disturbance, mood disturbance, and anxiety; Z79.899 Other long term (current) drug therapy
CPT/HCPCS: 80053; 80306; 80307; 81001; 85025; 87086; 93005; 93010; 96374; J0696

== ENCOUNTER 2023-06-25 18:06 | Emergency (ER) | payer OTHER ==
[2023-06-25 18:49] LABS: #Basophils 0.1 10x3/uL (0.0-0.2); #Eosinphils 0.2 10x3/uL (0.0-0.5); #Monocytes 0.7 10x3/uL (0.0-1.1); #Neutrophils 5.8 10x3/uL (1.5-8.4); %Basophils 0.8 % (0.0-2.0); %Eosinophils 2.5 % (0.0-6.0); %Lymphocytes 27.2 % (18.0-47.0); %Monocytes 7.1 % (0.0-10.0); %Neutrophils 62.2 % (40.0-75.0); Hematocrit 33.8 % (34.9-44.5); Hemoglobin 11.4 g/dL (12.0-15.5); Mean Corpuscular HGB CONC 33.7 g/dL (32.0-36.0); Mean Corpuscular Hemoglobin 29.8 pg (27.0-33.0); Mean Corpuscular Volume 88.3 fl (81.6-98.3); Mean Platelet Volume 9.5 fl (7.4-10.4); Platelet Count 258 10x3/uL (150-450); RBC Distribution Width 11.7 % (11.5-14.5); Red Blood Cell (RBC) Count 3.83 10x6/uL (3.90-5.03); White Blood Cell (WBC) Count 9.3 10x3/uL (3.5-10.5)
[2023-06-25 18:59] LABS: ALT (SGPT) 8 U/L (8-55); AST (SGOT) 11 U/L (5-34); Alkaline Phosphatase 86 U/L (40-110); Anion Gap 14 mmol/L (10-20); BUN (Urea Nitrogen) 21 mg/dL (9.8-20.1); Bilirubin, Total 0.3 mg/dL (0.2-1.2); Calc. Creatinine Clearance 0 mL/min (70-130); Calcium 8.9 mg/dL (7.8-10.44); Carbon Dioxide 24 mmol/L (23-31); Chloride 99 mmol/L (98-107); Estimated GFR 36; Globulin 2.7 g/dL (2.4-3.5); Glucose 123 mg/dL (83-110); Potassium 4.6 mmol/L (3.5-5.1); Protein, Total 6.7 g/dL (5.8-8.1); Sodium 132 mmol/L (136-145)
[2023-06-25 19:00] LABS: Acetaminophen 13 mcg/mL (10.0-30.0); Alcohol Less than 10.0 mg/dL (Less than 10); Salicylate Less than 8.0 mg/dL (15.0-30.0)
[2023-06-25] MEDS ORDERED: Ipratropium/Albuterol 3 ML NEB ONE (19:44)
[2023-06-25 20:03] LABS: Troponin I Less than 0.010 ng/mL (< 0.028)
[2023-06-25 20:27] LABS: Bilirubin Neg (Negative); Blood, Urine Negative (Negative); Clarity Clear (Clear); Glucose, Urine (Dipstick) Normal (Negative); Ketone, Urine Negative (Negative); Leukocyte 25 (Negative); Nitrite Negative (Negative); Protein, Urine (Dipstick) Negative (Neg-Trace); Specific Gravity, Urine 1.015 (1.005-1.030); Urobilinogen Normal mg/dL (Less than 2)
[2023-06-25 20:35] LABS: Amphetamine Not Detected (NotDetected); Barbiturates Screen Not Detected (NotDetected); Benzodiazepine Screen Detected (NotDetected); Cocaine Metabolite Screen Not Detected (NotDetected); Methadone Not Detected (NotDetected); Methamphetamine Not Detected (NotDetected); Opiate Screen Not Detected (NotDetected); Oxycodone Screen Not Detected (NotDetected); Phencyclidine (PCP) Not Detected (NotDetected); THC/Cannabinoid Screen Not Detected (NotDetected); Tricyclic Screen Detected (NotDetected)
[2023-06-25 20:43] LABS: Bacteria/HPF Rare-Few HPF (None Seen); CAUTI Indications for Culture Alt mental st,lethar; RBC/HPF None Seen HPF (0-3); Squamous Epithelial 0-3 HPF (0-3); WBC/HPF 0-3 HPF (0-3)
[2023-06-25 20:44] LABS: Urine Culture Reflex No No
[2023-06-26] MEDS ORDERED: Losartan 25 MG TAB ONE (07:40)
[2023-06-26] MEDS ORDERED: Carvedilol 6.25 MG TAB ONE (07:40)
== END 2023-06-26 09:30 | disposition home or self-care (01) ==
LOC: CSHERS 18:06
DX: F03.90 Unspecified dementia, unspecified severity, without behavioral disturbance, psychotic disturbance, mood disturbance, and anxiety (principal); I10 Essential (primary) hypertension; Z86.73 Personal history of transient ischemic attack (TIA), and cerebral infarction without residual deficits
CPT/HCPCS: 36415; 70450; 71045; 80053; 80306; 80307; 81001; 83880; 84443; 84484; 85025; 93005; 93010; 94640; 94760; J7620